=== PATIENT | male | born 1945 | race Caucasian/White ===

== ENCOUNTER 2022-01-05 09:23 | Inpatient (IN) ==
--- NOTE | 2021-12-16 10:40 | PAT Medication Instructions ---
Medication Instructions Date of Service December 16, 2021 Home Medications albuterol sulfate 90 mcg/actuation aerosol inhaler 2 puff inhalation Q4H PRN Shortness Of Breath aspirin 81 mg tablet,delayed release 81 mg PO HS atorvastatin 80 mg tablet 80 mg PO HS empagliflozin 25 mg tablet 25 mg PO QAM escitalopram oxalate 20 mg tablet 20 mg PO HS gabapentin 400 mg tablet 800 mg PO BID insulin aspart U-100 100 unit/mL (3 mL) subcutaneous pen 12 - 15 unit subcut UD insulin glargine 100 unit/mL (3 mL) subcutaneous pen 30 unit subcut BID losartan 50 mg tablet 50 mg PO QAM metformin 1,000 mg tablet 1,000 mg PO BID pantoprazole 40 mg tablet,delayed release 40 mg PO QAM ASK your prescriber and surgeon aspirin 81 mg tablet,delayed release 81 mg PO HS STOP taking 3 days before surgery empagliflozin 25 mg tablet 25 mg PO QAM DO NOT take the morning of surgery insulin aspart U-100 100 unit/mL (3 mL) subcutaneous pen 12 - 15 unit subcut UD losartan 50 mg tablet 50 mg PO QAM metformin 1,000 mg tablet 1,000 mg PO BID Take morning of surgery With a small sip of water, OTHERWISE NOTHING TO EAT OR DRINK AFTER MIDNIGHT: albuterol sulfate 90 mcg/actuation aerosol inhaler 2 puff inhalation Q4H PRN Shortness Of Breath (use if needed; please bring rescue inhaler with you to hospital day of surgery if possible) gabapentin 400 mg tablet 800 mg PO BID pantoprazole 40 mg tablet,delayed release 40 mg PO QAM Take evening before surgery albuterol sulfate 90 mcg/actuation aerosol inhaler 2 puff inhalation Q4H PRN Shortness Of Breath (if needed) atorvastatin 80 mg tablet 80 mg PO HS escitalopram oxalate 20 mg tablet 20 mg PO HS gabapentin 400 mg tablet 800 mg PO BID insulin aspart U-100 100 unit/mL (3 mL) subcutaneous pen 12 - 15 unit subcut UD insulin glargine 100 unit/mL (3 mL) subcutaneous pen 30 unit subcut BID metformin 1,000 mg tablet 1,000 mg PO BID Insulin Dependent Diabetic Patients * Test your blood sugar the morning of surgery * If Blood Sugar is GREATER THAN 150, take HALF of your regular dose of: insulin glargine 100 unit/mL (3 mL) take 15 units * If Blood Sugar is LESS THAN 150, DO NOT TAKE ANY: insulin glargine Other Notes If you have any questions please call us at [phone] or [phone] or [phone] or [phone]
--- NOTE | 2021-12-23 13:28 | Anesthesiology Consultation ---
Date of Service December 23, 2021 Assessment & Plan (1) Encounter for pre-operative examination: - COVID screening: Per assessment on 12/23: No known COVID-19 positive contacts or current COVID-19 related symptoms. Travel screen negative. At surgeon discretion if preop Covid testing being done. - Check BSG AM DOS - Outpatient joint assessment: Pt currently scheduled for inpatient pathway. If surgeon requests review for outpatient joint pathway, patient is not recommended candidate for outpatient joint program from anesthesia standpoint. Chart Review Chart Review: Acceptable Risk for Surgery and Patient seen in Pre Admission Testing Teaching & Discussion Pre-Anesthesia Teaching/Discussion Notes: Instructed NPO after midnight before surgery,except medications with 15 cc of water. Medication instructions provided according to the PAT guidelines. History Surgery Operation Date: 01/05/22 11:25 Proposed Procedures p Right Reverse Total Shoulder Arthroplasty - Avelino Mazariegos M.D. Height/Weight Height: 6 ft Weight: 106.5 kg Allergies Allergy/AdvReac Type Severity Reaction Status Date / Time No Known Allergies Allergy Verified 12/15/21 13:46 Medications Home Medications Medication Instructions Recorded Confirmed Last Taken albuterol sulfate 90 mcg/actuation 2 puff inhalation Q4H PRN 12/15/21 12/15/21 Unknown aerosol inhaler Shortness Of Breath aspirin 81 mg tablet,delayed 81 mg PO HS 12/15/21 12/15/21 Unknown release atorvastatin 80 mg tablet 80 mg PO HS 12/15/21 12/15/21 Unknown empagliflozin 25 mg tablet 25 mg PO QAM 12/15/21 12/15/21 Unknown escitalopram oxalate 20 mg tablet 20 mg PO HS 12/15/21 12/15/21 Unknown gabapentin 400 mg tablet 800 mg PO BID 12/15/21 12/15/21 Unknown insulin aspart U-100 100 unit/mL 12 - 15 unit subcut UD 12/15/21 12/15/21 Unknown (3 mL) subcutaneous pen insulin glargine 100 unit/mL (3 30 unit subcut BID 12/15/21 12/15/21 Unknown mL) subcutaneous pen losartan 50 mg tablet 50 mg PO QAM 12/15/21 12/15/21 Unknown metformin 1,000 mg tablet 1,000 mg PO BID 12/15/21 12/15/21 Unknown pantoprazole 40 mg tablet,delayed 40 mg PO QAM 12/15/21 12/15/21 Unknown release Past Medical History Medical History AAA (abdominal aortic aneurysm) Under surveillance by [facility] Infrarenal AAA- maximum diameter 4.4 x 4.2cm, small thrombus along anterior wall and right lateral margin, essentially stable appearance when correlated with ultrasound examination from 11/25/[address] scans from 11/28/19, 10/22/17, 05/13/17 per 10/2021 AAA ultrasound report Anxiety Chronic obstructive pulmonary disease Stable Diabetes mellitus, type 2 GERD (gastroesophageal reflux disease) History of prostate cancer s/p prostatectomy (no chemo/xrt) Hyperlipemia Hypertension Sleep apnea CPAP (compliant) Exercise / Class Metabolic Activity II 4-5 Yardwork/Stairs/Walk up hill (one FS (no CP, no SOB)) Past Surgical History Surgical History History of back surgery + pins Hx of appendectomy Hx of arthroscopy of shoulder Right RCR Hx of cataract extraction R/L Hx of colonoscopy Hx of prostatectomy Hx of vasectomy Subsequent reversal Past Anesthesia History No Hx of Anesthesia Complications and No Family Hx of Anesthesia Complications History of PONV No Hx of PONV and No Hx of Motion Sickness Social History Smoking Status: Former smoker Do You Dip or Chew Tobacco: No (Remote hx) Smoking End Date: Quit 7 months ago Hx Alcohol Use: No (No ETOH use x 10+ years ) Hx Substance Use: No substance use type: does not use Review of Systems Patient denies chest pain, shortness of breath, dyspnea on exertion, fever, chills, cough, wheezing, palpitations. Physical Exam Vital Signs VITALS BP 107/71 P 73 TEMP 98.6 SP02 97%RA RESP 18 PHYSICAL Full cervical extension range of motion. Full TMJ range of motion. TMD 3 finger breaths Mallampati Score 3 Dentition: several missing including upper/lower fronts, upper/lower partials Lungs: clear throughout to auscultation Cardiac: regular rate and rhythm, no murmurs noted Spine: normal Carotid arteries: negative bruit Extremities: no edema Lab Results Anesthesia Preop Results Results Anesthesia Widget: WBC 9.36 K/ul (4.8-10.8) 12/23/21 Hgb 16.2 g/dl (14.0-18.0) 12/23/21 Hct 45.7 % (40.1-51.0) 12/23/21 Plt 220 K/uL (130-400) 12/23/21 Na 138 mmol/L (136-145) 12/23/21 K 4.0 mmol/L (3.5-5.1) 12/23/21 Cl 104 mmol/L (98-107) 12/23/21 CO2 27 mmol/L (21-32) 12/23/21 BUN 21 mg/dl (6-23) 12/23/21 Creat 0.70 mg/dl (0.6-1.4) 12/23/21 Glucose Level 64 mg/dl (70-99(Fasting)) L 12/23/21 PT 10.9 Seconds (9.0-12.0) 12/23/21 PTT 26.8 Seconds (21.0-31.0) 12/23/21 INR 1.0 (0.9-1.1) 12/23/21 HA1c 7.4 % (4.5-5.6) H 12/23/21 Urine Color Yellow 12/23/21 Urine Appearance Clear (Clear) 12/23/21 Urine pH 5.0 (4.5-7.5) 12/23/21 Urine Specific [place] 1.038 (1.000-1.030) H 12/23/21 Urine Protein Negative (Negative) 12/23/21 Urine Glucose (UA) 3+ (Negative) H 12/23/21 Urine Ketones Trace (Negative) H 12/23/21 Urine Blood Negative (Negative) 12/23/21 Urine Nitrite Negative (Negative) 12/23/21 Urine Bilirubin Negative (Negative) 12/23/21 Urine Urobilinogen Negative (Negative) 12/23/21 Urine Leukocyte Esterase Negative (Negative) 12/23/21 Blood Type A Negative 12/23/21 Antibody Screen NEGATIVE 12/23/21 Testing Electrocardiogram Date: 12/23/21 SR with first degree AVB at 74bpm. LAD. RBBB. Chest X-Ray Date: 12/23/21 FINDINGS: PA and lateral chest radiographs are obtained. No prior studies are available for comparison at the time of dictation. The cardiomediastinal silhouette is top normal for projection noting atherosclerotic calcification of the thoracic aorta. The lungs and pleural spaces are clear. There is no pneumothorax. The skeletal structures are osteopenic. The bony thorax appears intact. Surgical anchors are seen in the right humeral head. IMPRESSION: No active disease in the chest. Other Testing Abdominal Aorta ultrasound (10/27/21) Infrarenal AAA extending over 6.5cm; maximum diameter 4.4 x 4.2cm, small thrombus along anterior wall and right lateral margin, essentially stable appearance when correlated with ultrasound examination from 11/25/[address] scans from 11/28/19, 10/22/17, 05/13/17 per report. COVID-19 Risk Screen Screening Information COVID-19 Screen Date: 12/23/21 Exposure 21 Days Family/Household +COVID Last 21 Days: No Exposure 10 Days Any COVID Exposure Last 10 Days: No Symptoms Last 10 Days Experienced COVID Sx Last 10 Days: No + COVID 0-90 Days COVID + in Last 0-90 Days: No
--- NOTE | 2022-01-04 10:27 | History & Physical Report ---
Date of Service January 04, 2022 Assessment & Plan (1) Right rotator cuff tear arthropathy: Plan: He has a recurrent, massive, retracted, full-thickness rotator cuff tearing with fatty atrophy of the muscle bellies and early rotator cuff tear arthropathy in his right shoulder. We discussed conservative management with repeat subacromial steroid injection versus definitive surgical intervention. Previous injections were minimally effective for him, and he would much prefer definitive surgery. I do think this is reasonable. I advised him that his only viable surgical treatment option would be a reverse total shoulder arthroplasty. He is in agreement and would like to proceed with this. I stressed to him that my biggest concern is his chronic narcotics use. I advised him that his pain will be very difficult to control postoperatively with this, and I would be uncomfortable with prescribing large doses of narcotics to control his pain. I strongly encouraged him to drastically wean down and get off of these narcotics prior to surgery. He will need medical clearance due to his aortic aneurysm. Risks, benefits, and alternatives of surgery were explained in detail. The surgical procedure, as well as postoperative recovery and rehabilitation, was also explained in detail. Risks include bleeding; infection; damage to surrounding structures such as nerves, blood vessels, and tendons that run in the area; persistent pain or stiffness; hardware failure; dislocation; brachial plexus palsy; blood clots; or need for further surgery. The patient understands all of this and wishes to proceed with surgery. Informed consent was obtained. History of Present Illness Chief Complaint: Right shoulder pain and weakness Primary Care Provider: NO PCP Mr. Garrett is a 76-year-old [id number] male who comes in today for initial evaluation of right shoulder pain and weakness. He had a previous right shoulder rotator cuff repair at [facility] in May 2014, although operative report from that surgery is not available. He reports that he did well after that surgery until about June of this year when he started having progressively worsening pain and weakness without any new injury. He reports that he had an injection done about that time, but it only gave him 3 days relief of his pain. He has pain down the lateral aspect of his shoulder, especially with abduction motions. This is very limiting to him on a daily basis, and frequently wakes him up at night. Of note, he has a history of chronic narcotics use. He reports that he has been prescribed oxycodone 15 mg twice a day for this shoulder pain. This is being prescribed by his primary care physician. He is not on her narcotics contract. He also has an abdominal aortic aneurysm, but denies history of coronary artery disease. Allergies Allergy/AdvReac Type Severity Reaction Status Date / Time No Known Allergies Allergy Verified 12/15/21 13:46 Home Medications Medication Instructions Recorded Confirmed Type albuterol sulfate 90 mcg/actuation 2 puff inhalation Q4H PRN 12/15/21 12/15/21 History aerosol inhaler Shortness Of Breath aspirin 81 mg tablet,delayed 81 mg PO HS 12/15/21 12/15/21 History release atorvastatin 80 mg tablet 80 mg PO HS 12/15/21 12/15/21 History empagliflozin 25 mg tablet 25 mg PO QAM 12/15/21 12/15/21 History escitalopram oxalate 20 mg tablet 20 mg PO HS 12/15/21 12/15/21 History gabapentin 400 mg tablet 800 mg PO BID 12/15/21 12/15/21 History insulin aspart U-100 100 unit/mL 12 - 15 unit subcut UD 12/15/21 12/15/21 History (3 mL) subcutaneous pen insulin glargine 100 unit/mL (3 30 unit subcut BID 12/15/21 12/15/21 History mL) subcutaneous pen losartan 50 mg tablet 50 mg PO QAM 12/15/21 12/15/21 History metformin 1,000 mg tablet 1,000 mg PO BID 12/15/21 12/15/21 History pantoprazole 40 mg tablet,delayed 40 mg PO QAM 12/15/21 12/15/21 History release Past Med/Surg History Medical History AAA (abdominal aortic aneurysm) Under surveillance by [facility] Infrarenal AAA- maximum diameter 4.4 x 4.2cm, small thrombus along anterior wall and right lateral margin, essentially stable appearance when correlated with ultrasound examination from 11/25/[address] scans from 11/28/19, 10/22/17, 05/13/17 per 10/2021 AAA ultrasound report Anxiety Chronic obstructive pulmonary disease Stable Diabetes mellitus, type 2 GERD (gastroesophageal reflux disease) History of prostate cancer s/p prostatectomy (no chemo/xrt) Hyperlipemia Hypertension Sleep apnea CPAP (compliant) Surgical History History of back surgery + pins Hx of appendectomy Hx of arthroscopy of shoulder Right RCR Hx of cataract extraction R/L Hx of colonoscopy Hx of prostatectomy Hx of vasectomy Subsequent reversal Social History Smoking Status: Former smoker Second Hand Exposure: No; Hx Alcohol Use: No (No ETOH use x 10+ years ) Hx Substance Use: No Preferred Language: Persian Communication Ability: Effective Licensed Marine Engineer Required: No Beliefs That Will Affect Care: None Current Living Situation: Spouse and Family Feels Safe at Home: Yes Assistive Devices: CPAP Physical Exam Physical Exam: Examination of the right shoulder shows mild limitation in shoulder range of motion due to pain, with palpable crepitus during motion. Rotator cuff strength is globally weak. Results & Data ([facility]) Diagnostic Findings Previous x-rays of the right shoulder from June 2021 were reviewed. There are 2 small metallic anchors in the greater tuberosity, consistent with previous rotator cuff repair. It does look like there are some remodeling changes at the greater tuberosity and undersurface of the acromion, as well as some mild proximal migration of the humeral head, consistent with early rotator cuff tear arthropathy. Mild glenohumeral joint arthritis. Previous MRI of the right shoulder from July 2021 was reviewed. It shows a massive, retracted, full-thickness recurrent tear of the rotator cuff involving the entirety of the supraspinatus tendon, as well as the majority of the infraspinatus. There is obvious significant fatty atrophy of the supraspinatus and infraspinatus muscle bellies, but it is difficult to quantify since they did not require sagittal images medially enough. There is certainly proximal migration of the humeral head with secondary changes consistent with rotator cuff tear arthropathy.
[~2022-01-05 09:23] MED LIST: ACETAMINOPHEN 500 MG TAB PO SCH; BUPIVACAINE 0.5 % 5 MG/1 ML PF 10ML VIAL ONE; CeleBREX 200 MG CAP PO SCH; FAMOTIDINE 20 MG TAB PO SCH; GABAPENTIN 600 MG DOSE PO SCH; LR 15ML/HR IV SCH; METOCLOPRAMIDE HCL 10 MG TABLET PO SCH; SUGAMMADEX SODIUM 200 MG/2 ML VIAL IV ONE; TRANEXAMIC ACID 1,000 MG **IV Pre-op IV SCH; ceFAZolin 2000MG 2,000 MG/15 ML SYR IV SCH; dexAMETHasone 4 MG TAB PO SCH
[2022-01-05] MEDS ORDERED: MIDAZOLAM HCL 1 MG/ML 2ML VIAL ONE (09:43)
[2022-01-05] MEDS ORDERED: fentaNYL citrate 100 MCG/2 ML VIAL ONE (09:43)
[2022-01-05] MEDS ORDERED: DEXAMETHASONE SOD INJ 4 MG/ML VIAL ONE (09:47)
[2022-01-05] MEDS ORDERED: SUCCINYLCHOLINE CHLORIDE 20 MG/ML 10 ML VIAL IV ONE (09:47)
[2022-01-05] MEDS ORDERED: ONDANSETRON INJ 2 MG/ML 2 ML VIAL ONE (09:47)
[2022-01-05] MEDS ORDERED: GLYCOPYRROLATE 0.2 MG/ML VIAL ONE (09:47)
[2022-01-05] MEDS ORDERED: PROPOFOL IV EMULSION 10 MG/ML 20 ML VIAL IV ONE (09:47)
[2022-01-05] MEDS ORDERED: ROCURONIUM BROMIDE 10 MG/ML 5 ML VIAL IV ONE (09:47)
[2022-01-05] MEDS ORDERED: ALBUTEROL 0.083% NEBU SOLN 3 ML VIAL NEB STA (10:31)
--- NOTE | 2022-01-05 11:13 | History & Physical Bridge Note ---
Date of Service January 05, 2022 History & Physical Bridge Note I have examined the patient, reviewed the History & Physical and in the interval since the performance of the History & Physical I have noted the following changes of clinical significance: no changes noted
[2022-01-05] MEDS ORDERED: ONDANSETRON INJ 2 MG/ML 2 ML VIAL IV PRN ×2 (12:33→16:01)
[2022-01-05] MEDS ORDERED: PROMETHAZINE HCL 12.5 MG in SODIUM CHLORIDE 0.9% 50 ML IV PRN (12:33)
[2022-01-05] MEDS ORDERED: FLUMAZENIL 0.1 MG/1 ML 10 ML VIAL IV PRN (12:33)
[2022-01-05] MEDS ORDERED: ePHEDrine sulfate 50 MG/ML AMP IV PRN (12:33)
[2022-01-05] MEDS ORDERED: ATROPINE SULFATE 0.1 MG/ML 10ML SYR IV PRN (12:33)
[2022-01-05] MEDS ORDERED: NALOXONE HCL 0.4 MG/1 ML VIAL/CARP IV PRN ×2 (12:33→16:01)
[2022-01-05] MEDS ORDERED: HYDROmorphone INJ 1 MG/ML SYRINGE IV PRN (12:33)
[2022-01-05] MEDS ORDERED: LABETALOL HCL IV 5 MG/ML 20ML IV PRN (12:33)
[2022-01-05] MEDS ORDERED: fentaNYL citrate 100 MCG/2 ML VIAL IV PRN (12:33)
[2022-01-05] MEDS ORDERED: PHENYLEPHRINE HCL 10 MG/ML VIAL ONE (12:41)
--- NOTE | 2022-01-05 13:54 | Operative Report ---
Post Operative Report Pre & Post Diagnosis Operation Date: 01/05/22 11:25 Pre-Op Diagnosis: Right shoulder rotator cuff tear arthropathy Post-Op Diagnosis: Right shoulder rotator cuff tear arthropathy I identified the patient and participated in the time-out.: Yes Procedure Operation Date: 01/05/22 11:25 Actual Procedures Right reverse total shoulder arthroplasty (18704) Open biceps tenodesis (50201) - Avelino Mazariegos M.D. Surgeon Avelino Mazariegos Lumber Piler Rell Calix PA-C Estimated Blood Loss 100 Findings Consistent with Post-Op Diagnosis Specimens None Drains None Anesthesia Type General Regional Complications none Disposition Disposition: Recovery Room Indications Mr. Garrett is a 76-year-old male with chronic right shoulder pain and weakness. History, clinical exam, and imaging were consistent with the above diagnosis. Risks, benefits, and alternatives of surgery were explained in detail. The patient understood all this and wished to proceed. Description of Procedure Components Implanted: Tornier Reverse Total Shoulder implants Perform glenoid baseplate: 29mm, 15 degree full wedge with 6.5mm central screw and 5.0mm peripheral screws Glenosphere: 39mm, +3mm, eccentric offset Ascend Flex humeral stem: 7B Standard length (90mm) Humeral tray: 1.5 mm offset, +0mm thickness Polyethylene insert: 39mm, +9mm thickness Patient was identified in the preoperative holding area. Operative extremity was marked. Regional blockade was given by the Anesthesia Staff. Patient was then brought back to the operating room, and general anesthesia was induced without complication. Appropriate weight-based dose of Ancef was infused intravenously for antibiotic prophylaxis. The patient was then placed in the b eachchair position. Right arm was then prepped and draped in a standard sterile fashion using Chlorhexidine prep. A standard deltopectoral incision was made through the skin and subcutaneous tissue. The cephalic vein was identified and retracted medially. Small branches to the deltoid were coagulated as necessary. The clavipectoral fascia was then incised and the subdeltoid space was opened. The rotator cuff was found to be deficient, and I therefore decided to perform a reverse total shoulder arthroplasty as planned preoperatively. The biceps tendon was identified within the bicipital groove and tenodesed at the superior border of the pectoralis tendon with #2 FiberWire suture. The biceps tendon was then divided proximal to the tenodesis site and the rotator interval was opened. The proximal portion of the biceps tendon was excised. The remaining subscapularis tendon was elevated subperiosteally off of the lesser tuberosity. The glenohumeral joint was then dislocated, and large osteophytes were debrided with a ronguer. The intramedullary canal of the humerus was then opened with a canal finder. The humeral head cut was then made in the appropriate inclination and version using the cutting guide. The humeral canal was then sequentially broached to the appropriate size. A protective cap was then placed on top of the humeral trial. I then turned my attention to the glenoid. The proximal stump of the biceps tendon was excised, along with the labrum circumferentially around the glenoid. The Blueprint drill guide was then positioned on the glenoid, and the guidepin was then inserted. The 15 degree angled reamer was then inserted over the guidepin and an reamed to an appropriate depth. The central screw hole was drilled, and appropriate length 6.5mm central screw was selected. The baseplate was then implanted into place according to our preoperative Blueprint plan by tightening down the central screw. A peripheral 5mm nonlocking screw was placed superiorly first for additional compression of the baseplate, and then additional locking 5 mm peripheral screws were placed to complete fixation of the baseplate. Glenosphere was then impacted and secured. A trial humeral tray and insert were placed on the trial humeral stem, and a trial reduction was carried out. Once I achieved acceptable joint stability and range of motion with the trial implants, the final humeral implants were assembled on the back table and then impacted into position. I then took the shoulder through full range of motion to ensure good stability and acceptable motion. Wound was then copiously irrigated with sterile saline. Deep fascia was closed with 0 V-lock suture. Subcutaneous tissue was closed with 2-0 V-lock, and skin was closed with 3-0 V-lock. Skin was then sealed with Dermabond. Sterile dressings were then applied with a waterproof silver-impregnated dressing, and the arm was placed into a sling. The patient was awakened from anesthesia and taken to the Post Anesthesia Care Unit in stable condition. There were no immediate complications from the procedure. I was present and scrubbed for the entire procedure, with the exception of final skin closure and dressing application. Due to the complex nature of the procedure, the entire surgery was performed with the operational assistance of Rell Calix PA-C. The assistant chief of police, under direct supervision, was involved in the performance of all aspects of the surgical procedure including hemostasis, tissue incision and retraction, instrument management, patient positioning, and wound closure. I attest to the content of the Intraoperative Record and any orders documented therein. Any exceptions are noted below.
--- NOTE | 2022-01-05 14:58 | Anesthesiology Progress Note ---
Date of Service January 05, 2022 Anesthesia Post Procedure Vital Signs Vital Signs: Temp Pulse Resp BP Pulse Ox O2 Del Method O2 Flow Rate 01/05/22 14:45 83 18 107/64 94 Oxymask 2 01/05/22 14:35 81 17 101/62 94 Oxymask 4 01/05/22 14:25 79 19 106/75 95 Oxymask 6 01/05/22 14:55 36.4 C L 80 14 101/59 L 93 Nasal Cannula 3 01/05/22 14:13 36.2 C L 83 18 127/75 93 Oxymask 6 01/05/22 09:54 37.1 C 93 H 20 131/94 94 Room Air Pain Intensity Right Shoulder: Pain Intensity: 5 Transfer of Care Handoff Completed per policy Notes Mental Status: alert / awake / arousable Patient Amnestic to Procedure: Yes Nausea / Vomiting: adequately controlled Pain: adequately controlled Airway Patency, RR, SpO2: stable & adequate BP & HR: stable & adequate Hydration State: stable & adequate Anesthetic Complications: no major complications apparent
--- NOTE | 2022-01-05 15:00 | XRay Report ---
RIGHT SHOULDER 2 VIEWS CLINICAL HISTORY: Postoperative examination. FINDINGS: 2 portable views of the right shoulder are obtained. No prior studies are available for [facility] at the time of dictation. A right shoulder arthroplasty is in near anatomic alignment. The sk eletal structures are osteopenic. No acute fracture is seen. Subcutaneous gas and soft tissue swellin g overlying the right shoulder are expected postoperative changes. Productive degenerative change is seen at the acromioclavicular joint. The visualized right lung parenchyma appears clear. IMPRESSION: Expected postoperative findings status post right shoulder arthroplasty. No fracture is s een. Electronically signed by: Joel Desai M.D. 01/05/2022 2:59 PM
[2022-01-05] MEDS ORDERED: ALBUTEROL HFA 8 GM INHALER INH PRN (16:01)
[2022-01-05] MEDS ORDERED: oxyCODONE HCL IR 5 MG TAB (IMMEDIATE RELEASE) PO PRN (16:01)
[2022-01-05] MEDS ORDERED: METOCLOPRAMIDE HCL INJ 5 MG/ML 2 ML VIAL IV PRN (16:01)
[2022-01-05] MEDS ORDERED: bisacodyL 10 MG SUPP PR PRN (16:01)
[2022-01-05] MEDS ORDERED: MAGNESIUM HYDROXIDE SUSP 30 ML UDC PO PRN (16:01)
[2022-01-05] MEDS ORDERED: PHARMACY GLYCEMIC MGMT CONSULT PRN (16:01)
[2022-01-05] MEDS ORDERED: GLUCOSE 40% GEL 15 GM TUBE PO PRN (16:15)
[2022-01-05] MEDS ORDERED: GLUCOSE 10 TAB/TUBE PO PRN (16:15)
[2022-01-05] MEDS ORDERED: GLUCAGON FOR INJ 1 MG VIAL IM PRN (16:15)
[2022-01-05] MEDS ORDERED: CARBOHYDRATES FOR HYPOGLYCEMIA PO PRN (16:15)
[2022-01-05] MEDS ORDERED: DEXTROSE 50% 50 ML SYRINGE IV PRN (16:15)
[2022-01-05] MEDS: SODIUM CHLORIDE 0.9% 1000ML 1,000 ML IV SCH (17:00)
[2022-01-05] MEDS ORDERED: LANTUS PER UNIT CHARGE SQ ONE ×2 (18:00→21:00)
[2022-01-05] MEDS: ACETAMINOPHEN 500 MG TAB PO SCH ×2 (18:03→23:39)
[2022-01-05] MEDS: INSULIN ASPART PER UNIT SC SCH ×2 (18:04→20:44)
[2022-01-05] MEDS: ceFAZolin 2000MG 2,000 MG/15 ML SYR IV SCH (20:44)
[2022-01-05] MEDS: IBUPROFEN 600 MG TAB PO SCH (20:46)
[2022-01-05] MEDS: GABAPENTIN 800 MG TAB PO SCH (20:46)
[2022-01-05] MEDS: DOCUSATE SODIUM 100 MG CAP PO SCH (20:47)
[2022-01-05] MEDS ORDERED: SENNA 8.6 MG TAB PO SCH (21:00)
[2022-01-05] MEDS ORDERED: ESCITALOPRAM OXALATE 20 MG TAB PO SCH (21:00)
[2022-01-05] MEDS ORDERED: ATORVASTATIN 40 MG TAB PO SCH (21:00)
[2022-01-06] MEDS: SODIUM CHLORIDE 0.9% 1000ML 1,000 ML IV SCH (02:16)
[2022-01-06] MEDS: IBUPROFEN 600 MG TAB PO SCH ×2 (02:16→08:35)
[2022-01-06] MEDS: ACETAMINOPHEN 500 MG TAB PO SCH (05:36)
[2022-01-06] MEDS: ceFAZolin 2000MG 2,000 MG/15 ML SYR IV SCH (05:37)
[2022-01-06] MEDS: DOCUSATE SODIUM 100 MG CAP PO SCH (08:36)
[2022-01-06] MEDS: GABAPENTIN 800 MG TAB PO SCH (08:36)
[2022-01-06] MEDS: INSULIN ASPART PER UNIT SC SCH (08:37)
[2022-01-06] MEDS ORDERED: MULTIVITAMIN TAB PO SCH (09:00)
[2022-01-06] MEDS ORDERED: EMPAGLIFLOZIN 25 MG TAB PO SCH (09:00)
[2022-01-06] MEDS ORDERED: PANTOprazole 40 MG TAB PO SCH (09:00)
[2022-01-06] MEDS ORDERED: LOSARTAN POTASSIUM 50 MG TAB PO SCH (09:00)
--- NOTE | 2022-01-06 09:22 | Orthopedic Progress Note ---
Date of Service January 06, 2022 Assessment & Plan (1) Right rotator cuff tear arthropathy: Plan: Postop day 1 status post right reverse total shoulder arthroplasty PT/OT protocols. Nonweightbearing right upper extremity. DVT prophylaxis-SCDs Pain management as written. DC planning patient is planning for outpatient PT upon discharge. Plan for discharge to home today. Admission and Anticipated Discharge Date Admission Date: January 05, 2022 Subjective Postop day 1 Patient is sitting up in his chair at the bedside finishing his breakfast. He has no complaints this morning. His pain is controlled. He states that his nerve block is still working. He is hoping to go home today. Physical Exam Physical Exam: Silverlon dressing is intact. Sling is in place. He has good range of motion of his fingers and wrist however continues to have decreased sensation in all of his fingers. Dense numbness in his thumb but he states that his third through fifth fingers are starting to regain their sensation. Capillary refill is less than 2 seconds. Results & Data ([facility]) Vital Signs (Past 12 Hours) Vital Signs Temp Pulse Resp BP Pulse Ox O2 Del Method O2 Flow Rate 01/06/22 06:38 92 Room Air 01/06/22 06:35 37 C 62 20 131/75 96 Nasal Cannula 2 01/06/22 02:19 36.4 C L 61 16 110/66 94 Nasal Cannula 3 01/05/22 22:57 36.8 C 64 18 101/59 L 95 Nasal Cannula 3
[2022-01-06 09:48] LABS: Basophils # (auto) 0.02 K/uL (0-0.2); Basophils % (auto) 0.2 %; Eosinophils # (auto) 0.01 K/uL (0-0.50); Eosinophils % (auto) 0.1 %; Hemoglobin 15.4 g/dl (14.0-18.0); Immature Granulocytes # (auto) 0.14 K/uL (0.00-0.02); Immature Granulocytes % (auto) 1.4 %; Lymphocytes # (auto) 1.89 K/uL (1.2-3.4); Lymphocytes % (auto) 19.1 %; Mean Corpuscular Hemoglobin 31.2 pg (25.0-34.0); Mean Corpuscular Volume 89.2 fL (80.0-100.0); Monocytes # (auto) 1.01 K/uL (0.24-0.82); Monocytes % (auto) 10.2 %; Platelet Count 160 K/uL (130-400); RDW Coefficient of Variation 14.6 % (11.5-14.5); RDW Standard Deviation 46.7 fL (36.4-46.3); Red Blood Count 4.93 M/uL (4.63-6.08); White Blood Count 9.87 K/ul (4.8-10.8)
[2022-01-06 10:02] LABS: BUN Creatinine Ratio 31.3 (10-20); Calcium 9.2 mg/dl (8.5-10.1); Creatinine Clr Calc Pharmacy 122.3 ml/min; Est GFR (African American) 109.7 ml/min; Est GFR (Non-African American) 94.7 ml/min; Potassium 3.7 mmol/L (3.5-5.1)
--- NOTE | 2022-01-11 17:08 | Discharge Summary ---
Date of Service January 11, 2022 Admission HPI Per Admitting Provider Mr. Garrett is a 76-year-old [id number] male who comes in today for initial evaluation of right shoulder pain and weakness. He had a previous right shoulder rotator cuff repair at [facility] in May 2014, although operative report from that surgery is not available. He reports that he did well after that surgery until about June of this year when he started having progressively worsening pain and weakness without any new injury. He reports that he had an injection done about that time, but it only gave him 3 days relief of his pain. He has pain down the lateral aspect of his shoulder, especially with abduction motions. This is very limiting to him on a daily basis, and frequently wakes him up at night. Of note, he has a history of chronic narcotics use. He reports that he has been prescribed oxycodone 15 mg twice a day for this shoulder pain. This is being prescribed by his primary care physician. He is not on her narcotics contract. He also has an abdominal aortic aneurysm, but denies history of coronary artery disease. Principal Diagnosis Right shoulder rotator cuff tear arthropathy Discharge Data Allergies Allergy/AdvReac Type Severity Reaction Status Date / Time No Known Allergies Allergy Verified 01/05/22 10:00 Procedures Performed Operation Date: 01/05/22 11:25 Actual Procedures p Right Reverse Total Shoulder Arthroplasty--Uncemented(Right) - Avelino Mazariegos M.D. Ordered Studies 01/05/22 05:00 US - OR guided needle placemen Routine Hospital Course (1) Right rotator cuff tear arthropathy: Patient underwent a right reverse total shoulder arthroplasty on the date of admission. Patient tolerated the procedure well and was transferred up to the general orthopedic surgery floor in stable condition. Perioperative antibiotic coverage was initiated, and continued for 24 hours postoperatively. DVT prophylaxis was initiated consisting of SCDs and aspirin 325 mg daily. Perioperative pain control regimen was transitioned to strictly oral pain medications by postoperative day 1. On postoperative day 1 the patient was doing very well. Pain was well controlled, and patient was mobilizing well with therapy. Patient was determined be safe and ready for discharge to home. Total Time Total Time Spent Total Time Spent (In Minutes): 15 Discharge Plan Discharge Items Patient Disposition: Home - Self-Care Reason For Visit: Right Shoulder Rotator Cuff Tear Arthroplasty Discharge Diagnosis: Right shoulder rotator cuff tear arthropathy Activity: Per Instructions section Non-emergency contact: Surgeon Call non-emergency contact if: your pain is not controlled, your temperature is above 101.5, your wound has increased redness and your wound has increased drainage Follow-up/Referrals: Avelino Mazariegos M.D. [Physician] - PCP,NO [Primary Care Provider] - Diet: Regular Addtl Attending Provider Instructions: Things to Watch Out For -Go to the Emergency Room if you have sudden onset of nausea, vomiting, chest pain, shortness of breath, or uncontrollable pain. -Call the clinic or go to the Emergency Room if you have a sudden increase in the amount of wound drainage or the drainage becomes thick, yellow or green, or foul-smelling. -For routine questions, call the clinic at [phone] during regular business hours (8am-5pm). For urgent issues after regular business hours, you may call the clinic to be connected to the on-call physician. Dressings -A special waterproof, silver-impregnated dressing was placed on your shoulder. Keep this dressing in place for 1 week after surgery. You may shower with the waterproof dressing in place, but do not soak the dressing in the bathtub or pool. -One week after surgery, you may remove the waterproof dressing. You may continue to shower, and let water run BRIEFLY over the incision, but do not soak the incision in the bathtub or pool for 2 weeks. You may also gently clean the incision with mild soap and water; pat the incision dry after cleaning-do not rub the incision. Apply a new dressing daily thereafter. Shoulder Exercises -Keep your operative shoulder in the sling for comfort, except as detailed below. -You should come out of the sling 4-5 times a day for passive pendulum exercises: lean over and swing your arm in a circular pattern. -You should also do active-assisted forward flexion exercises: use your opposite hand to lift your operative arm forward to 90 degrees. -Do not flex your elbow (curl motion) or supinate your forearm (rotating palm up) against resistance. -Do not use your arm to push yourself up out of bed or up from a seated position. Ice Pack -You may use an ice pack for pain relief. You should use it 20-30 minutes at a time. Place a towel between the ice pack and your skin to prevent frostbite. -You should use the ice pack fairly regularly for the first 1-2 weeks after surgery to help reduce pain and inflammation. -About 2 weeks after your surgery, you should start using heat to loosen up your shoulder prior to doing your stretching exercises, then use the cooling sleeve after your exercises are complete to reduce swelling and pain. Pain Medicines -Your prescriptions for pain medications have already been sent to the pharmacy on file at [facility]. -You have been prescribed an anti-inflammatory (Motrin/ibuprofen) and a non- narcotic pain medicine (Tylenol/acetaminophen). These are your primary pain medications. Take them each every 6 hours as instructed. It is recommended that you stagger these medicines every 3 hours (i.e. take ibuprofen at 8:00 am, then acetaminophen at 11:00 am, then ibuprofen at 2:00 pm, etc) -DO NOT take any additional anti-inflammatories (Advil, Aleve/naproxen, Mobic/meloxicam, Celebrex) or any additional Tylenol/acetaminophen products with these prescribed medications. -You have also been prescribed an additional narcotic pain medication (oxycodone). Take this medicine ONLY for breakthrough pain not controlled by the ibuprofen and acetaminophen. -Do not drive or operate heavy machinery while taking the narcotic medication. -Common side effects of narcotic pain medicines include itching, nausea, constipation, and feeling "loopy". However, if you develop a rash or hives, stop taking the medicine and call the clinic. If you develop swelling in your throat or difficulty breathing, go to the Emergency Room or call 911 IMMEDIATELY. -You may take over the counter stool softeners if needed for constipation. Aspirin -Take a full strength (325mg) aspirin every day for 4 weeks (28 days) to prevent blood clots. -If you were taking a baby aspirin (81mg) prior to surgery, you may resume taking this 81mg dose after you complete the 28-day course of the 325mg strength dose; do not take the 325mg dose in addition to your 81mg dose. -Be aware that you will bruise easier while taking Aspirin; this is normal. However, if you develop a significantly large area of swelling after an injury, or have a cut that will not stop bleeding, call the clinic or go to the Emergency Room immediately. Pending Studies at Discharge: No Stand-Alone Forms: My [facility] Medications and DC Order Prescriptions: Continued losartan 50 mg Tablet 50 mg PO QAM atorvastatin 80 mg Tablet 80 mg PO HS pantoprazole 40 mg Tablet,Delayed Release (Dr/Ec) 40 mg PO QAM metformin 1,000 mg Tablet 1,000 mg PO BID albuterol sulfate 90 mcg/actuation Hfa Aerosol Inhaler 2 puff INHALATION Q4H PRN (Reason: Shortness Of Breath) escitalopram oxalate 20 mg Tablet 20 mg PO HS insulin aspart U-100 100 unit/mL (3 mL) Insulin Pen 12 - 15 unit SUBCUT UD Rx Instructions: 12 units w/breakfast, 12 units w/lunch, 15 units with supper gabapentin 400 mg Tablet 800 mg PO BID insulin glargine 100 unit/mL (3 mL) Insulin Pen 30 unit SUBCUT BID Rx Instructions: for total of 60 units per day empagliflozin 25 mg Tablet 25 mg PO QAM Discontinued aspirin 81 mg Tablet,Delayed Release (Dr/Ec) 81 mg PO HS Discharge Orders: Discharge Order (Routine); Ordered 01/06/22 Ordered By: Gavino Marie Admission Data Admit Date/Time: 01/05/22 14:20 Attending Provider: Avelino Mazariegos Admit Provider: Avelino Mazariegos Primary Care Provider: PCP,NO Other Interventions: Discharge Summary Assessment (RN) Last Done: 01/06/22 09:44
== END 2022-01-06 11:35 | disposition home or self-care (01) | DRG 483 ==
LOC: ASU 09:23 → 3N 14:20